=== PATIENT | female | born 1960 | race Caucasian/White ===

== ENCOUNTER → 2016-11-25 | Outpatient (CLI) | payer MEDICARE, MEDICAID ==
[~2016-11-25] MED LIST: BUPROPION HCL75 MG PO; DIOVAN HCT PO; EFFEXOR-XR150 MG PO; FISH OIL1 IU PO; MUCINEX D 600 M1 TER PO; PATADAY; PEPCID 20MG TAB20 MG PO; PREDNISONE20 MG PO; TOPAMAX 100MG100 MG PO; TOPROL XL50 MG PO; TRAMADOL50 MG PO
== END ==
LOC: COL.RAD 09:30
DX: M25.551 Pain in right hip (principal)
CPT/HCPCS: J3301; Q9967

== ENCOUNTER 2019-10-07 07:28 | Day surgery (SDC) | payer MEDICARE, MEDICAID ==
[2019-10-07] VITALS (9 sets, daily range): BP systolic 117–153; BP diastolic 69–77; PULSE 85–101; TEMP 97.9–98.5
[~2019-10-07] VITALS: Ht 170.2 cm; Wt 132.3 kg
[2019-10-07] MEDS ORDERED: TYLENOL 500MG500 MG PO ×2 (08:51→09:26)
[2019-10-07] MEDS ORDERED: ALAWAY 10 ML10 ML OP (08:52)
[2019-10-07] MEDS ORDERED: AFRIN 15 ML15 ML NS (08:52)
[2019-10-07] MEDS ORDERED: ELIQUIS 5MG PO (08:53)
[2019-10-07] MEDS ORDERED: VITAMIN C500 MG PO (08:56)
[2019-10-07] MEDS ORDERED: BENADRYL EXTRA STR2% TP (08:57)
[2019-10-07] MEDS ORDERED: BIOFREEZE 0.2%-1 GE1 TOP (08:58)
[2019-10-07] MEDS ORDERED: ANTACID ULTRA1000 M1 PO (08:58)
[2019-10-07] MEDS ORDERED: VITAMIN D31000 I1 PO (08:59)
[2019-10-07] MEDS ORDERED: B-121000 MCG PO (08:59)
[2019-10-07] MEDS ORDERED: DYAZIDE 25 MG-31 CAP PO (09:00)
[2019-10-07] MEDS ORDERED: EFFEXOR-XR150 MG PO (09:01)
[2019-10-07] MEDS ORDERED: FISH OIL 1000MG1 CAP PO (09:02)
[2019-10-07] MEDS ORDERED: FENTANYL62.5 MCG/H TD (09:02)
[2019-10-07] MEDS ORDERED: IMODIUM 2MG CAPS2 MG PO (09:03)
[2019-10-07] MEDS ORDERED: KEPPRA1000 MG PO (09:03)
[2019-10-07] MEDS ORDERED: LACTAID3000 UNIT PO ×2 (09:04→09:05)
[2019-10-07] MEDS ORDERED: CLARITIN 1010 MG/TAB PO (09:06)
[2019-10-07] MEDS ORDERED: SYNTHROID0.1 MG/TAB PO (09:06)
[2019-10-07] MEDS ORDERED: MAALOX ADVANCE148 ML PO (09:08)
[2019-10-07] MEDS ORDERED: ANTIVERT 25MG25 MG PO (09:08)
[2019-10-07] MEDS ORDERED: MELATONIN5 M1 PO (09:09)
[2019-10-07] MEDS ORDERED: GLUCOPHAGE1000 MG PO (09:13)
[2019-10-07] MEDS ORDERED: TOPROL XL100 MG PO (09:14)
[2019-10-07] MEDS ORDERED: MYRBETR25MG PO (09:14)
[2019-10-07] MEDS ORDERED: MIRALAX PA17 GM/Dose PO (09:14)
[2019-10-07] MEDS ORDERED: NASACORT OTC NS (09:15)
[2019-10-07] MEDS ORDERED: MOBIC15 MG PO (09:15)
[2019-10-07] MEDS ORDERED: NITROSTAT0.4 MG/TAB SL (09:16)
[2019-10-07] MEDS ORDERED: ZOFRAN 4MG T4 MG/TAB PO (09:16)
[2019-10-07] MEDS ORDERED: K-DUR 10 MEQ T10 MEQ PO (09:17)
[2019-10-07] MEDS ORDERED: K-DUR20 MEQ PO (09:18)
[2019-10-07] MEDS ORDERED: PREPH RC (09:19)
[2019-10-07] MEDS ORDERED: PRILOSEC 20MG20 MG PO (09:19)
[2019-10-07] MEDS ORDERED: TOPAMAX200 MG PO (09:21)
[2019-10-07] MEDS ORDERED: PROMETHAZINE D473 ML PO (09:21)
[2019-10-07] MEDS ORDERED: ULTRAM 50MG TAB50 MG PO (09:22)
[2019-10-07] MEDS ORDERED: EXPECTORANT DM240 ML PO (09:26)
[2019-10-07] MEDS ORDERED: WELLBUTRIN 100100 MG PO (09:27)
[2019-10-07] MEDS ORDERED: VISTARIL50 MG PO (09:27)
[2019-10-07] MEDS ORDERED: ROXICODONE 55 MG/TAB PO (10:30)
--- NOTE | 2019-10-07 11:25 | NUR ---
Pt returned via cart to [facility]. Pt A&O. HOB elevated and cool damp wash cloth on forehead. Report received from Violeta BILLING ADMINISTRATOR. Pt was given medication for nausea. Reports feeling somewhat better and wanting to rest at this time. Family updated on pts request. VSS-see flowsheet. Call light in reach. Denies needs at this time. Lights dimmed for pt to rest.
--- NOTE | 2019-10-07 12:40 | NUR ---
Pts VS remain stable. Assisted with bedpan and pt voided without difficulty. Given pb bread, pudding and sprite per request. Denies pain or nausea at this time. HOB elevated. Pt watching TV and family has left for lunch but will call when they return to waiting room. LLE elevated with ice bag in place.
--- NOTE | 2019-10-07 13:15 | NUR ---
Daughter, Brigid, returned to visit pt. [facility] contacted for transportation back to facility. Time confirmed for 1430 burr picker for dc back to [facility]. Report given to UVALDO Mederos who will be taking over care when pt returns.
--- NOTE | 2019-10-07 14:29 | NUR ---
Pts IV removed and pressure dressing applied. Assisted pt to side of bed, dressed and pivot transfer to with gaitbelt and staff x3 to assist. Pt tolerated okay, needing reminded of NWB on left leg. DC packet sent with daughter, Brigid as well as walker. [facility] for dc to facility.
== END 2019-10-07 14:30 ==
LOC: SDCO 07:28
DX: S82.842A Displaced bimalleolar fracture of left lower leg, initial encounter for closed fracture (principal); F41.9 Anxiety disorder, unspecified; D69.6 Thrombocytopenia, unspecified; I10 Essential (primary) hypertension; G47.33 Obstructive sleep apnea (adult) (pediatric); G89.29 Other chronic pain; M19.90 Unspecified osteoarthritis, unspecified site; G43.909 Migraine, unspecified, not intractable, without status migrainosus; J30.2 Other seasonal allergic rhinitis; G47.30 Sleep apnea, unspecified; Z79.01 Long term (current) use of anticoagulants; Z91.048 Other nonmedicinal substance allergy status; Z88.8 Allergy status to other drugs, medicaments and biological substances; Z86.718 Personal history of other venous thrombosis and embolism; Z85.841 Personal history of malignant neoplasm of brain; Z90.49 Acquired absence of other specified parts of digestive tract; Z83.3 Family history of diabetes mellitus; Z80.9 Family history of malignant neoplasm, unspecified; Z82.49 Family history of ischemic heart disease and other diseases of the circulatory system; Z82.61 Family history of arthritis; Z82.62 Family history of osteoporosis; Z80.8 Family history of malignant neoplasm of other organs or systems; Z88.6 Allergy status to analgesic agent; Z91.011 Allergy to milk products
CPT/HCPCS: C1713; J0690; J1100; J2250; J2405; J2550; J2704; J2795; J3010; J7120